=== PATIENT | female | born 1985 | race African-American/Black ===

== ENCOUNTER 2017-03-27 07:44 | Emergency (ER) | payer MEDICAID ==
[~2017-03-27] VITALS: Ht 162.6 cm; Wt 82.0 kg
[2017-03-27 11:46] VITALS: BP 112/78
== END 2017-03-27 12:12 | disposition home or self-care (01) ==
LOC: ER 08:41
DX: T63.301A Toxic effect of unspecified spider venom, accidental (unintentional), initial encounter (principal); L03.116 Cellulitis of left lower limb; Y92.89 Other specified places as the place of occurrence of the external cause; Z88.6 Allergy status to analgesic agent; Z88.8 Allergy status to other drugs, medicaments and biological substances; Z91.010 Allergy to peanuts; F17.210 Nicotine dependence, cigarettes, uncomplicated
CPT/HCPCS: 99283

== ENCOUNTER 2018-01-20 20:31 | Emergency (ER) | payer MEDICAID ==
[~2018-01-20] VITALS: Ht 163.8 cm; Wt 83.0 kg
[2018-01-21 00:42] VITALS: BP 142/90
== END 2018-01-20 23:50 | disposition left against medical advice (07) ==
LOC: ER 20:31
DX: Z53.21 Procedure and treatment not carried out due to patient leaving prior to being seen by health care provider (principal)

== ENCOUNTER 2018-01-21 06:43 | Emergency (ER) | payer MEDICAID ==
[~2018-01-21] VITALS: Ht 163.8 cm; Wt 83.0 kg
[2018-01-21 06:55] VITALS: BP 112/77
== END 2018-01-21 10:20 | disposition left against medical advice (07) ==
LOC: ER 08:35
DX: M79.675 Pain in left toe(s) (principal); Z53.21 Procedure and treatment not carried out due to patient leaving prior to being seen by health care provider

== ENCOUNTER 2018-02-18 23:39 | Emergency (ER) | payer SELFPAY ==
[~2018-02-18] VITALS: Ht 163.8 cm; Wt 80.3 kg
[2018-02-19 00:27] VITALS: BP 112/86
== END 2018-02-19 04:00 | disposition left against medical advice (07) ==
LOC: ER 02-19 02:23
DX: Z53.21 Procedure and treatment not carried out due to patient leaving prior to being seen by health care provider (principal)

== ENCOUNTER 2018-03-19 10:19 | Emergency (ER) | payer SELFPAY ==
[~2018-03-19] VITALS: Ht 165.1 cm; Wt 80.0 kg
[2018-03-19 12:29] VITALS: BP 129/93
[2018-03-19] MEDS ORDERED: ACETAMINOPHEN 325MG TABLET PO ONE (12:30)
== END 2018-03-19 15:37 | disposition home or self-care (01) ==
LOC: ER 10:19
DX: S93.401A Sprain of unspecified ligament of right ankle, initial encounter (principal); W10.8XXA Fall (on) (from) other stairs and steps, initial encounter; Y93.89 Activity, other specified; Y92.89 Other specified places as the place of occurrence of the external cause; Z88.6 Allergy status to analgesic agent; Z88.8 Allergy status to other drugs, medicaments and biological substances; Z91.010 Allergy to peanuts
CPT/HCPCS: 73610; 73630; 99284

== ENCOUNTER 2018-11-25 21:45 | Emergency (ER) | payer MEDICAID ==
[~2018-11-25] VITALS: Ht 162.6 cm; Wt 73.0 kg
[2018-11-26] MEDS ORDERED: KETOROLAC 30MG/ML VIAL IM ONE (04:45)
[2018-11-26] MEDS ORDERED: ACETAMINOPHEN 325MG TABLET PO ONE (05:15)
[2018-11-26 05:34] VITALS: BP 123/69
== END 2018-11-26 05:35 | disposition home or self-care (01) ==
LOC: ER 21:45
DX: K08.89 Other specified disorders of teeth and supporting structures (principal); Z98.890 Other specified postprocedural states; Z87.01 Personal history of pneumonia (recurrent); Z88.6 Allergy status to analgesic agent; Z88.8 Allergy status to other drugs, medicaments and biological substances
CPT/HCPCS: 99283; Z7610; J1885

== ENCOUNTER 2020-03-13 14:09 | Emergency (ER) | payer MEDICAID ==
[~2020-03-13] VITALS: Ht 162.6 cm; Wt 82.2 kg
[2020-03-13 14:28] VITALS: BP 109/60
[2020-03-13] MEDS ORDERED: PREDNISONE 20MG TABLET PO ONE (15:00)
== END 2020-03-13 15:30 | disposition home or self-care (01) ==
LOC: ER 14:09
DX: L23.9 Allergic contact dermatitis, unspecified cause (principal); Z88.6 Allergy status to analgesic agent; Z98.890 Other specified postprocedural states; Z88.8 Allergy status to other drugs, medicaments and biological substances
CPT/HCPCS: 99283; J7512